=== PATIENT | female | born 1980 | race Caucasian/White ===

== ENCOUNTER 2017-06-07 05:24 | Day surgery (SDC) | payer BC ==
[~2017-06-07] VITALS: Ht 172.7 cm; Wt 87.5 kg
[~2017-06-07 05:24] MED LIST: JUNEL FE 1.5-31 EACH PO; MOTRIN IB200 MG PO; Motrin PO; PRENATAL VITAM1 EAC3 PO; PROAIR HFA8.5 GM IH; VICODIN,LORT1 TABLET PO
[2017-06-07 05:53] VITALS: BP 125/72
[2017-06-07 09:40] VITALS: BP 117/72
[2017-06-07 10:10] VITALS: BP 111/60
== END 2017-06-07 10:15 | disposition home or self-care (01) ==
LOC: SDC 05:24
PROC: 0U5F4ZZ Destruction of Cul-de-sac, Percutaneous Endoscopic Approach (ICD-10-PCS; principal; 2017-06-07)
DX: N94.6 Dysmenorrhea, unspecified (principal); N80.9 Endometriosis, unspecified; N83.202 Unspecified ovarian cyst, left side; Z88.0 Allergy status to penicillin; Z87.891 Personal history of nicotine dependence
CPT/HCPCS: J1100; J1170; J1885; J2250; J2405; J2710; J3010; S0020